=== PATIENT | female | born 1960 | race Two or more races ===

== ENCOUNTER → 2019-05-20 | Outpatient (CLI) | payer MEDICAID ==
[~2019-05-20] VITALS: Ht 157.5 cm; Wt 94.8 kg
== END | disposition home or self-care (01) ==
LOC: Rad HDHVI 13:16
PROVIDERS: ATTEND Internal Medicine Cardiovascular Disease
DX: I20.9 Angina pectoris, unspecified (principal); R07.89 Other chest pain; R06.02 Shortness of breath
CPT/HCPCS: 78452; 93017; 93306; 96374; A9500

== ENCOUNTER → 2021-01-03 | Outpatient (CLI) | payer MEDICAID | END | disposition home or self-care (01) | LOC: Rad HDHVI 13:53 | PROVIDERS: ATTEND Internal Medicine Cardiovascular Disease | DX: R94.4 Abnormal results of kidney function studies (principal); G45.9 Transient cerebral ischemic attack, unspecified; E78.5 Hyperlipidemia, unspecified; R07.1 Chest pain on breathing; I20.9 Angina pectoris, unspecified | CPT/HCPCS: 36415; 82565; 84520; 93306 ==

== ENCOUNTER → 2021-07-06 | Outpatient (CLI) | payer MEDICAID | END | disposition home or self-care (01) | LOC: LAB 16:17 | PROVIDERS: ATTEND Nurse Practitioner Family | DX: Z11.52 Encounter for screening for COVID-19 (principal) | CPT/HCPCS: 36415; 87426 ==

== ENCOUNTER → 2022-03-16 | Outpatient (CLI) | payer MEDICAID | END | disposition home or self-care (01) | LOC: LAB 14:58 | PROVIDERS: ATTEND Urology | DX: N39.0 Urinary tract infection, site not specified (principal) | CPT/HCPCS: 87086 ==